=== PATIENT | male | born 2000 | race Two or more races ===

== ENCOUNTER 2020-12-01 13:45 | Emergency (ER) | payer SELFPAY ==
[~2020-12-01] VITALS: Ht 175.3 cm; Wt 87.5 kg
[2020-12-01 15:07] VITALS: BP 139/68
[2020-12-01] MEDS ORDERED: LIDOCAINE 1% HCL (LOCAL ANESTH.) INJ 20ML MDV IJ ONE (15:45)
[2020-12-01] MEDS ORDERED: IBUPROFEN 800 MG TAB PO ONE (16:00)
== END 2020-12-01 17:02 | disposition home or self-care (01) ==
LOC: ER 13:45
DX: S61.211A Laceration without foreign body of left index finger without damage to nail, initial encounter (principal); F17.210 Nicotine dependence, cigarettes, uncomplicated; X58.XXXA Exposure to other specified factors, initial encounter; Y93.89 Activity, other specified; Y92.89 Other specified places as the place of occurrence of the external cause; Y99.8 Other external cause status
CPT/HCPCS: 12001; 73140; 99283; J2001